=== PATIENT | male | born 1955 | race Caucasian/White ===

== ENCOUNTER → 2020-07-31 08:56 | Outpatient (CLI) | payer MEDICARE, OTHER, SELFPAY ==
--- NOTE | 2020-07-31 09:16 | DI.CT.S_ITS ---
PROCEDURE: CT ABDOMEN PELVIS WO/W CON INDICATIONS: history of other diseases of urinary system TECHNIQUE: Optional 5 mm thick noncontrast images acquired from the diaphragm to the symphysis pubis. After the administration of intravenous contrast, 5 mm thick images acquired from the diaphragm to the symphysis pubis after a 10-minute delay. 2 mm thick coronal and sagittal reformats were then performed of the kidneys and ureters. For radiation dose reduction, the following was used: automated exposure control, adjustment of mA and/or kV according to patient size. COMPARISON: None. FINDINGS: Image quality: Excellent. Lung bases: Lung bases are clear. Heart size is normal. Partially visualized ground-glass nodule image 1/5 which is nonspecific. Calcified granuloma in the right lung base measuring 3 mm. Urinary system: Both kidneys are normal in size, without hydronephrosis or nephrolithiasis on pre-contrast images. No perinephric fat stranding. There is normal bilateral renal enhancement. Renal calyces appear normal in morphology when filled with contrast. Opacified portions of both ureters demonstrate normal caliber. Bladder is grossly unremarkable although partially obscured by left hip arthroplasty hardware. No calcified bladder stones. 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 Subcentimeter renal foci, statistically cysts, although technically too small to characterize accurately and therefore nonspecific. 5 mm exophytic focus along the posterior cortex of the right kidney is solid-appearing although technically too small to characterize accurately. This is seen on image 141/4 and recommend continued surveillance with ultrasound or CT. Other solid organs: Liver is normal in size and enhancement. Gallbladder negative. Biliary system is non dilated. Pancreas enhances normally. Spleen is normal in size and enhancement. No adrenal nodules. Peritoneum and bowel: Bowel loops demonstrate normal wall thickness and caliber. No free fluid or air. Colonic diverticulosis is seen without evidence of acute complication. Normal appendix. Nodes and vessels: No retroperitoneal or mesenteric adenopathy by size criteria. Aorta and inferior vena cava are normal in size. Fat containing midline ventral hernia measuring 5.3 cm in diameter. Pelvis: No pathologic free pelvic fluid. No inguinal hernias or adenopathy. Bones: No vertebral body compression fracture. Spondylytic changes and facet arthropathy. IMPRESSION: No urolithiasis. No hydronephrosis. Exophytic right renal subcentimeter lesion which is technically too small to characterize accurately although warrants continued surveillance with CT or ultrasound to document long-term stability and exclude early neoplasm. Additional subcentimeter renal foci, statistically cysts, although technically too small to characterize accurately and therefore nonspecific. Colonic diverticulosis Fat containing midline ventral hernia Additional chronic and incidental findings as above. Dictated by: Lg Soni M.D. on 07/31/2020 at 15:30 Approved by: Lg Soni M.D. on 07/31/2020 at 15:40
== END ==
PROVIDERS: PCP Internal Medicine; Referring Provider Urology; Visit Provider Urology
DX: N28.89 Other specified disorders of kidney and ureter (principal); Z87.448 Personal history of other diseases of urinary system; K43.9 Ventral hernia without obstruction or gangrene
CPT/HCPCS: 74178; Q9967

== ENCOUNTER → 2021-07-15 12:24 | Outpatient (CLI) | payer MEDICARE, OTHER, SELFPAY ==
--- NOTE | 2021-07-15 | DI.US.S_ITS ---
PROCEDURE: US RENAL COMPLETE INDICATIONS: RIGHT KIDNEY LESION SEEN ON CT 07/31/2020 TECHNIQUE: Real-time scanning was performed of the kidneys and bladder, with image documentation. COMPARISON: [facility], CT, CT ABDOMEN PELVIS WO/W CON, 07/31/2020, 9:12. FINDINGS: Kidneys: Kidneys are normal in size. Right kidney measures 12 cm long; left kidney measures 14.8 cm long. Right renal cortical thickness is 1.9 cm; left renal cortical thickness is 2.2 cm. Renal echogenicity is within normal limits. No hydronephrosis or nephrolithiasis. The previously seen exophytic cyst at the inferior pole the right kidney is not identified. Superior pole left kidney hypoechoic complicated cyst measures 2 x 1.8 x 1.6 cm there is adjacent blood flow. This is not definitely seen on prior CT. Bladder: Pre-void bladder volume is 131 mL. Patient refused to void. Ureteral jets are seen. Miscellaneous: No free pelvic fluid. Liver is prominent in size. IMPRESSION: Exam is technically limited due to body habitus and acoustic windows. 1. Exophytic cyst in the right kidney seen on prior CT is not appreciated. 2. Left kidney superior pole complicated cyst measuring 2 cm. This is not appreciated on the prior CT. Consider further evaluation of the kidneys with renal protocol MRI. A follow-up CT or ultrasound could also be performed. Dictated by: Aníbal Osborn M.D. on 07/15/2021 at 14:18 Approved by: Aníbal Osborn M.D. on 07/15/2021 at 14:27
== END ==
PROVIDERS: PCP Internal Medicine; Referring Provider Urology; Visit Provider Urology
DX: N28.9 Disorder of kidney and ureter, unspecified (principal)
CPT/HCPCS: 76770

== ENCOUNTER 2023-04-20 07:54 | Day surgery (SDC) | payer MEDICARE, OTHER, SELFPAY ==
[2023-04-20 08:27] VITALS: BMI 34.7
[2023-04-20 08:31] VITALS: BP 142/91; PULSE 73; RESP 16; TEMP 36.9; O2SAT 99
[2023-04-20] MEDS: LACTATED RINGERS 1,000 ML 42 ML IV (08:34)
--- NOTE | 2023-04-20 09:10 | P.HP_ITS ---
History of Present Illness History of Present Illness Date Patient Seen: 04/20/23 Time Patient Seen: 09:10 Chief complaint: SDC Narrative: 67-year-old man history of colonic polyps last colonoscopy 6 years ago here for screening. No family history of intestinal malignancy. No abdominal concerns including pain, unintentional weight loss nausea vomiting blood per rectum. [facility] Medical History (Updated 04/20/23 @ 09:11 by Juve Kelley MD) Arthritis Hypercholesteremia Neuropathy SUDEEP (obstructive sleep apnea) Pilonidal cyst Raynaud disease Urinary frequency Surgical History (Updated 04/20/23 @ 08:27 by Florencia Martínez RN) History of shoulder surgery History of shoulder surgery Social History household members: spouse Smoking Status: Current every day smoker alcohol intake: never Meds Home Medications and Allergies Home Medications Medication Instructions Recorded Confirmed Type finasteride 5 mg tablet 5 mg PO DAILY 04/20/23 04/20/23 History rosuvastatin 20 mg tablet 20 mg PO ONCE PM 04/20/23 04/20/23 History zolpidem 10 mg tablet 20 mg PO BEDTIME 04/20/23 04/20/23 History Allergies Allergy/AdvReac Type Severity Reaction Status Date / Time No Known Drug Allergies Allergy Verified 04/20/23 08:21 Exam Vital Signs (past 8 hours): - 04/20/23 08:31 Temperature 98.4 F Pulse Rate 73 Respiratory Rate 16 Blood Pressure 142/91 H Pulse Oximetry 99 Oxygen Delivery Method Room Air Oxygen Delivery Method Room Air Narrative Exam Narrative: General adult man alert oriented no acute distress Abdomen soft nontender nondistended Assessment & Plan Assessment and plan (1) Personal history of colonic polyps: Status: Acute Assessment & Plan narrative: The patient requires colorectal screening and colonoscopy is recommended. Technical details were discussed. Risks, benefits, alternatives explained. Risks including but not limited to myocardial infarction, aspiration, bleeding, pain, missed lesion, incomplete examination, need for further radiographic studies, colonic perforation, and need for major abdominal surgery were discussed. All questions were answered to their satisfaction, and they are in agreement with this plan.
[2023-04-20 09:44] VITALS: BP 82/55; PULSE 61; RESP 14; TEMP 36.8; O2SAT 95
--- NOTE | 2023-04-20 09:45 | PM.OP.COLON ---
Operative Date/Time/Diagnoses Date of procedure: 04/20/23 Time of procedure: 09:46 Pre-op diagnosis: Personal history of colonic polyps Post-op diagnosis: same Procedure & Clinicians Study performed: Colonoscopy Same procedure as scheduled: Yes Indications: 67-year-old man personal history of colonic polyps here for screening colonoscopy Surgeon: Juve Kelley Procedure Notes Procedure in detail: The history and physical was performed/updated and the patient is ASA class is 2. The procedure was discussed in detail with the patient. Potential risks complications including infection, bleeding, missed diagnosis, perforation, need for surgery, and were explained. Their questions were answered and informed consent was obtained. Patient was brought to the procedure room and placed standard monitoring equipment. The patient's vital signs were monitored continuously throughout the entire procedure. Prior to starting time-out was performed. The patient was placed in the left lateral recumbent position. Procedural sedation was administered by anesthesia. Examination began with a thorough inspection of the perianal area there was no evidence of fissures, fistulae, external hemorrhoids or cutaneous malignancy. The colonoscopy scope was then placed into the anal canal and was advanced to the cecum, which was identified by the ileocecal valve, the appendiceal orifice and the confluence of the taenia. The scope was then slowly withdrawn examining colon thoroughly in all directions, irrigating it of any residual stool. No masses or polyps. Extensive sigmoid and descending colonic diverticulosis The patient tolerated the procedure well. They will be discharged once criteria are met. The prep was of fair quality. The withdrawl time was 6 minutes. Specimen(s): none sent Impression: Diverticulosis Post-procedure Recommendations: High fiber diet Plan for aftercare: No further colonoscopy necessary unless symptomatic Disposition: same day surgery
[2023-04-20 09:49] VITALS: BP 86/43; PULSE 55; RESP 15; TEMP 36.7; O2SAT 95
[2023-04-20 09:54] VITALS: BP 103/60; PULSE 54; RESP 15; TEMP 36.8; O2SAT 95
[2023-04-20 09:58] VITALS: BP 118/73; PULSE 61; RESP 14; TEMP 36.7; O2SAT 97
== END 2023-04-20 10:07 | disposition home or self-care (01) ==
PROVIDERS: PCP Internal Medicine; Referring Provider Surgery; Visit Provider Surgery
PROC: 0DJD8ZZ Inspection of Lower Intestinal Tract, Via Natural or Artificial Opening Endoscopic (ICD-10-PCS; CPT 45378; principal; 2023-04-20 09:15)
DX: Z12.11 Encounter for screening for malignant neoplasm of colon (principal); Z86.010 Personal history of colon polyps; K57.30 Diverticulosis of large intestine without perforation or abscess without bleeding
CPT/HCPCS: G0105

== ENCOUNTER → 2025-05-29 07:54 | Outpatient (CLI) | payer MEDICARE, OTHER, SELFPAY ==
--- NOTE | 2025-05-29 07:55 | DI.MRI.S_ITS ---
PROCEDURE: MR ANKLE RT WO CON INDICATIONS: r/o cartilage defect TECHNIQUE: Noncontrast sagittal T1 spin echo and T2 fast spin echo with fat saturation, axial proton density fast spin echo and T2 fast spin echo with fat saturation, coronal T1 spin echo and T2 fast spin echo with fat saturation through the ankle/hindfoot. COMPARISON: [facility], CR, ORTHO-XR ANKLE 3V WB RIGHT, 05/23/2025, 14:54. FINDINGS: Image quality: Excellent. Bones and joints: There is mild ankle soft tissue swelling and edema particularly over medial aspect of ankle joint. No bone marrow contusions or fractures. No hindfoot coalitions. Tiny subcortical cyst formation in posterior lateral aspect of distal tibia is seen. Similar subcortical cyst in medial aspect of distal fibular shaft/lateral malleolus is also noted. Similar nonspecific subcortical cystic changes also noted involving lateral aspect of 1st metatarsal base and within plantar aspect of cuboid. No osteochondral injuries of the talar dome. No pathologic joint effusions. Well- defined plantar and dorsal calcaneal enthesophytes are seen. Medial structures: The posterior tibialis tendon is thickened at the level of distal talus and talonavicular joint. The flexor digitorum longus, and flexor hallucis longus tendons are intact. The posterior tibial neurovascular bundle appears normal within the tarsal tunnel, without extrinsic mass effect. The deltoid ligament and spring ligament are intact. Lateral structures: The anterior talofibular ligament appears thickened. The calcaneofibular, and posterior talofibular ligaments appear intact. More superiorly, the anterior and posterior tibiofibular ligaments appear intact, as is the intermalleolar ligament. The tibiofibular syndesmosis is normal in width at 2 mm or less. The peroneus longus and brevis tendons demonstrate normal location and morphology. The sinus tarsi demonstrates normal fatty signal, without edema, fibrosis, or cyst formation. Anterior structures: The tibialis anterior, extensor hallucis longus, and extensor digitorum longus tendons appear intact. The dorsal talonavicular ligament appears intact. Posterior and plantar structures: Distal Achilles tendinosis at its posterior calcaneal insertion is seen. Thickened plantar fascia at its calcaneal insertion is seen with mild surrounding edema. No abductor digiti quinti muscle atrophy to suggest Greer neuropathy. IMPRESSION: 1. Mild ankle soft tissue swelling and edema. No drainable fluid collection. No marrow edema. No acute fracture or dislocation. No osteochondral injuries of talar dome. Nonspecific intraosseous cystic changes in midfoot and hindfoot as above. No suspicious bony lesions. 2. Tendinosis involving posterior tibialis tendon at the level of distal talus and talonavicular joint. 3. Distal Achilles tendinosis at its posterior calcaneal insertion. Well- defined plantar and dorsal calcaneal enthesophytes. Mildly thickened plantar fascia at its calcaneal insertion suggestive of low-grade plantar fasciitis. 4. Low-grade ATFL sprain. No full-thickness ankle ligament rupture. Dictated by: Evaristo Man M.D. on 05/30/2025 at 10:43 Approved by: Evaristo Man M.D. on 05/30/2025 at 10:48
== END ==
LOC: MRI 07:55
PROVIDERS: PCP Internal Medicine; Referring Provider Internal Medicine; Visit Provider Orthopaedic Surgery
DX: S93.491A Sprain of other ligament of right ankle, initial encounter (principal); S86.811D Strain of other muscle(s) and tendon(s) at lower leg level, right leg, subsequent encounter; M77.31 Calcaneal spur, right foot; M79.89 Other specified soft tissue disorders; R60.0 Localized edema
CPT/HCPCS: 73721